=== PATIENT | male | born 1970 | race Caucasian/White ===

== ENCOUNTER 2017-09-04 15:13 | Emergency (ER) | payer OTHER ==
[2017-09-04 15:17] VITALS: BP 133/79; BMI 30.5
[2017-09-04] MEDS ORDERED: TETRACAINE HCL ONE (15:21)
[2017-09-04] MEDS ORDERED: FUL-GLO STRIP ONE (15:21)
[2017-09-04] MEDS ORDERED: TETRACAINE HCL AFFEYE ONE (15:32)
[2017-09-04] MEDS ORDERED: FUL-GLO STRIP LEFTEYE ONE (15:32)
--- NOTE | 2017-09-04 15:42 | DR.GENAD ---
HPI - PCP Primary Care Physician: ROXI - HPI Comment HPI Comment: He presents with lt. eye irritation and pain onset about 1 hr. [employer] in [place]. He states that he may have saw dust in there. - Complaint/Symptoms Chief Complaint:: PT C/O LT EYE PAIN. PT STATES HE GOT SOMETHING IN HIS EYE APPROX 1 HOUR AGO. PT STATES HE THINKS IT MAYBE SOME SAW DUST. - Nurses notes reviewed Nurses Notes Review: Yes - Source History Provided: Patient - Mode of Arrival Mode of Arrival: Ambulatory - Timing Onset of Chief Complaint: 09/04/17 - Modifying Factors Worsens:: blinking eyelids Improves:: keeping the eye closed PMH - PMH Past Medical History: No Past Surgical History: No Surgical History: No History - Family History History of Family Medical Conditions: No - Social History Does any household member use tobacco: No Alcohol Use: None Do you use any recreational Drugs:: No Lives With: Family Lives Where: Home - infectious screening In the last 2 months have you had wt loss of >10#?: NO Have you had fever, night sweats or hemotysis?: No Have you traveled outside the country in the last 6 months?: No Isolation: Standard ROS - Review of Systems Constitutional: No Symptoms Reported Eyes: Eye Pain, Tearing ENTM: No Symptoms Reported Respiratoy: No Symptoms Reported Cardiovascular: No Symptoms Reported Gastrointestinal/Abdominal: No Symptoms Reported Genitourinary: No Symptoms Reported Neurological: No Symptoms Reported Musculoskeletal: No Symptoms Reported Integumentary: No Symptoms Reported Hematologic/Lymphatic: No Symptoms Reported Endocrine: No Symptoms Reported Psychiatric: No Symptoms Reported All Other Systems: Reviewed and Negative PE - Vital Signs Vitals: Temperature 97.6 F Pulse Rate 70 Respiratory Rate 20 Blood Pressure 133/79 O2 Sat by Pulse Oximetry 97 - General Limitations: No Limitations General Appearance: Alert, In No Apparent Distress, In Distress (relating to lt. eye discomfort) - Head Head Exam: Normal Inspection - Eyes Eye exam: PERRL, EOMI, Conjunctival Injection - ENT ENT Exam: Normal Exam - Neck Neck Exam: Normal Inspection - Chest Chest Inspection: Normal Inspection - Respiratory Respiratory Exam: Normal Lung Sounds Bilat - Cardiovascular Cardiovascular Exam: Regular Rate, Normal Rhythm - Abdominal Exam Abdominal Exam: Normal Inspection, Normal Bowel Sounds, Soft - Extremities Extremities Exam: Normal Inspection - Back Back Exam: Normal Inspection - Neurologic Neurological Exam: Alert, Oriented X3 - Psychiatric Psychiatric Exam: Normal Affect, Normal Mood Course - Reevaluation 1st: Improved Procedures - Eye Procedure Alcaine Drops Administered: Yes (1cc) Eye FB Removal: removal w/ cotton swab - Diagnosis Discharge Problem: FB (foreign body) of eyelid - Discharge Plan Disposition: HOME, SELF-CARE Condition: Stable - Follow ups/Referrals Follow ups/Referrals: KURT DIANE [Primary Care Provider] - 3 days - Instructions Instructions: How to Use Eye Drops and Eye Ointments
== END 2017-09-04 16:37 | disposition home or self-care (01) ==
LOC: ER 15:19
PROC: 08C Eye, Extirpation (ICD-10-PCS; principal; 2017-09-04)
DX: T15.12XA Foreign body in conjunctival sac, left eye, initial encounter (principal)
CPT/HCPCS: 65205; 99282

== ENCOUNTER 2017-12-21 19:04 | Emergency (ER) | payer OTHER ==
[2017-12-21 19:11] VITALS: BMI 31.8
--- NOTE | 2017-12-21 19:40 | DR.GENAD ---
HPI - PCP Primary Care Physician: edinson - HPI Comment HPI Comment: PAIN NOTED PAST 2 DAYS BUT WORSE TODAY. NO TRAUMA. NO SOB OR CHEST PAIN. NO FEVER. - Complaint/Symptoms Chief Complaint Doctors Comments: PAIN LT LEG MAINLY AROUNG KNEE GOING UP THIGH AND DOWN THE LEG. PAIN INCREASES WITH MOVEMENT. PATIENT ALSO HAVE PAIN AROUNG LLLRT ELBOW GOING UP ARM AND FOREARM. Chief Complaint:: pt c/o lt leg pain and rt am painpt states" my feet are swollen and my lt leg hurts really bad" - Nurses notes reviewed Nurses Notes Review: Yes - Source History Provided: Patient - Mode of Arrival Mode of Arrival: Ambulatory - Timing Onset of Chief Complaint: 12/20/17 Came on: Suddenly - Duration Duration: Constant Duration: Days - Severity Severity: Moderate PMH - PMH Past Medical History: No Past Surgical History: No Surgical History: No History - Family History History of Family Medical Conditions: No - Social History Do you use any recreational Drugs:: No Lives With: Family Lives Where: Home - infectious screening In the last 2 months have you had wt loss of >10#?: NO Have you had fever, night sweats or hemotysis?: No Have you traveled outside the country in the last 6 months?: No Isolation: Standard ROS - Review of Systems Constitutional: No Symptoms Reported Eyes: No Symptoms Reported ENTM: No Symptoms Reported Respiratoy: No Symptoms Reported Cardiovascular: No Symptoms Reported Gastrointestinal/Abdominal: No Symptoms Reported Genitourinary: No Symptoms Reported Neurological: No Symptoms Reported Musculoskeletal: Arm, Elbow, Leg, Knee Integumentary: No Symptoms Reported Hematologic/Lymphatic: No Symptoms Reported Endocrine: No Symptoms Reported All Other Systems: Reviewed and Negative PE - Vital Signs Vitals: Temperature 98.2 F Pulse Rate 66 Respiratory Rate 18 Blood Pressure [Left Arm] 136/72 Blood Pressure 156/75 O2 Sat by Pulse Oximetry 100 - General Limitations: No Limitations General Appearance: Alert - Head Head Exam: Normal Inspection - Eyes Eye exam: Normal Appearance - ENT ENT Exam: Normal External Ear Exam External Ear Exam: Normal External Inspection TM/Canal Exam: Bilateral Normal Nose Exam: Normal Nose Exam Mouth Exam: Normal Inspection Throat Exam: Normal Inspection - Neck Neck Exam: Normal Inspection - Chest Chest Inspection: Symmetric Chest Wall Rise - Respiratory Respiratory Exam: Normal Lung Sounds Bilat Respiratory Exam: Bilateral Clear to Auscultation - Cardiovascular Cardiovascular Exam: Regular Rate, Normal Rhythm - Abdominal Exam Abdominal Exam: Normal Bowel Sounds, Soft MDM - Additional Information Additional Information Obtained From: Family - Differential Diagnosis Differential Diagnosis: TENDINITIS, BURSITIS, MUSCULOSKELETAL PAIN, DVT Course - Treatment Treatment: SEE ORDERS. IM NORFLEX AND TORADOL IN ED. - Reevaluation 1st: Improved (PAIN IMPROVING.) - Education/Counseling Education/Counseling: Patient, Family, Education Educated On: Diagnosis, Needs for Follow Up ROR - Labs Reviewed Laboratory Results Reviewed?: Yes Result Diagrams: 12/21/17 20:05 12/21/17 20:05 Laboratory: WBC 6.8 X10^3/uL (3.6-10.0) 12/21/17 20:05 RBC 4.56 X10^6/uL (4.7-6.0) L 12/21/17 20:05 Hgb 13.7 g/dL (13.5-18.0) 12/21/17 20:05 Hct 39.3 % (42.0-54.0) L 12/21/17 20:05 MCV 86.3 fL (80.0-100.0) 12/21/17 20:05 MCH 30.0 pg (27.0-34.0) 12/21/17 20:05 MCHC 34.8 g/dL (33.0-35.0) 12/21/17 20:05 RDW 13.4 % (11.6-16.5) 12/21/17 20:05 Plt Count 326 X10^3/uL (150.0-450.0) 12/21/17 20:05 MPV 8.3 fL (7.4-11.0) 12/21/17 20:05 Neut % 52.7 % (42.0-75.0) 12/21/17 20:05 Lymph % 32.6 % (21.0-51.0) 12/21/17 20:05 [place] % 10.1 % (0.0-13.0) 12/21/17 20:05 Eos % 2.6 % (0.9-2.9) 12/21/17 20:05 Baso % 2.0 % (0.2-1.0) H 12/21/17 20:05 Neut # 3.6 x10^3/uL (2.2-4.8) 12/21/17 20:05 Lymph # 2.2 X10^3/uL (1.3-2.9) 12/21/17 20:05 [place] # 0.7 x10^3/uL (0.3-0.8) 12/21/17 20:05 Eos # 0.2 x10^3/uL (0.0-0.2) 12/21/17 20:05 Baso # 0.1 X10^3/uL (0.0-0.1) 12/21/17 20:05 Absolute Nucleated RBC 0.0 /100WBC 12/21/17 20:05 D-Dimer < 100 ng/mL (0-400) 12/21/17 20:05 Sodium 141 mmol/L (136-145) 12/21/17 20:05 Corrected Sodium TNP 12/21/17 20:05 Potassium 4.2 mmol/L (3.5-5.1) 12/21/17 20:05 Chloride 104 mmol/L (98-107) 12/21/17 20:05 Carbon Dioxide 28.9 mmol/L (21-32) 12/21/17 20:05 BUN 21 mg/dL (7-18) H 12/21/17 20:05 Creatinine 1.22 mg/dL (0.70-1.30) 12/21/17 20:05 Est GFR (MDRD) Af Amer > 60 (>60) 12/21/17 20:05 Est GFR (MDRD) Non-Af > 60 (>60) 12/21/17 20:05 Glucose 94 mg/dL (65-99) 12/21/17 20:05 Calcium 8.3 mg/dL (8.5-10.1) L 12/21/17 20:05 Corrected Calcium TNP 12/21/17 20:05 Total Bilirubin 0.20 mg/dL (0.2-1.0) 12/21/17 20:05 AST 23 Units/L (15-37) 12/21/17 20:05 ALT 33 Units/L (12-78) 12/21/17 20:05 Alkaline Phosphatase 88 Units/L (46-116) 12/21/17 20:05 Total Protein 7.2 g/dL (6.4-8.2) 12/21/17 20:05 Albumin 3.5 g/dL (3.4-5.0) 12/21/17 20:05 Globulin 3.7 g/dL (2.5-4.5) 12/21/17 20:05 Albumin/Globulin Ratio 0.9 Ratio (1.1-2.1) L 12/21/17 20:05 - XRAY XRAY Interpreted by: Radiologist - Diagnosis Discharge Problem: Tendinitis, Arthritis, Musculoskeletal pain - Discharge Plan Disposition: HOME, SELF-CARE Condition: Stable Prescriptions: Ibuprofen [MOTRIN TAB 800 MG *] 800 mg PO DAILY PRN #20 tab PRN Reason: Pain/Inflammation - Follow ups/Referrals Follow ups/Referrals: KURT DIANE [Primary Care Provider] - 12/22/17 - Instructions Instructions: Tendinitis and Tenosynovitis-SportsMed, Musculoskeletal Pain Additional Instructions: RETURN TO ED IF WORSE.
[2017-12-21 20:27] LABS: BASOPHILS # (AUTO) 0.1 X10^3/uL (0.0-0.1); EOSINOPHILS # (AUTO) 0.2 x10^3/uL (0.0-0.2); EOSINOPHILS % (AUTO) 2.6 % (0.9-2.9); HEMATOCRIT 39.3 % (42.0-54.0); HEMOGLOBIN 13.7 g/dL (13.5-18.0); LYMPHOCYTES # (AUTO) 2.2 X10^3/uL (1.3-2.9); LYMPHOCYTES % (AUTO) 32.6 % (21.0-51.0); MEAN CORPUSCULAR HGB CONC 34.8 g/dL (33.0-35.0); MEAN CORPUSCULAR VOLUME 86.3 fL (80.0-100.0); MEAN PLATELET VOLUME 8.3 fL (7.4-11.0); MONOCYTES # (AUTO) 0.7 x10^3/uL (0.3-0.8); MONOCYTES % (AUTO) 10.1 % (0.0-13.0); NEUTROPHILS # (AUTO) 3.6 x10^3/uL (2.2-4.8); NEUTROPHILS % (AUTO) 52.7 % (42.0-75.0); PLATELET COUNT 326 X10^3/uL (150.0-450.0); RED BLOOD COUNT 4.56 X10^6/uL (4.7-6.0); RED CELL DISTRIBUTION WIDTH 13.4 % (11.6-16.5); WHITE BLOOD COUNT 6.8 X10^3/uL (3.6-10.0)
[2017-12-21 20:31] LABS: ALANINE AMINOTRANSFERASE 33 Units/L (12-78); ALBUMIN 3.5 g/dL (3.4-5.0); ALKALINE PHOSPHATASE 88 Units/L (46-116); BLOOD UREA NITROGEN 21 mg/dL (7-18); CALCIUM 8.3 mg/dL (8.5-10.1); CARBON DIOXIDE 28.9 mmol/L (21-32); CHLORIDE 104 mmol/L (98-107); CREATININE 1.22 mg/dL (0.70-1.30); SODIUM 141 mmol/L (136-145); TOTAL PROTEIN 7.2 g/dL (6.4-8.2); eGFR BLACK RACES > 60 (>60); eGFR NON BLACK RACES > 60 (>60)
[2017-12-21 20:35] LABS: ASPARTATE AMINO TRANSFERASE 23 Units/L (15-37)
[2017-12-21] MEDS ORDERED: TORADOL 60 MG VIAL IM ONE (20:58)
[2017-12-21] MEDS ORDERED: NORFLEX INJ IM ONE (20:58)
[2017-12-21] MEDS ORDERED: NORFLEX INJ ONE (21:07)
[2017-12-21] MEDS ORDERED: TORADOL 60 MG VIAL ONE (21:07)
[2017-12-21 21:43] VITALS: BP 136/72
== END 2017-12-21 21:42 | disposition home or self-care (01) ==
LOC: ER 19:13
DX: M77.9 Enthesopathy, unspecified (principal); M19.90 Unspecified osteoarthritis, unspecified site; M79.1 Myalgia
CPT/HCPCS: 36415; 80053; 85025; 85378; 96372; 99283; 99284; J1885; J2360

== ENCOUNTER 2017-12-24 20:44 | Emergency (ER) | payer OTHER ==
[2017-12-24 20:49] VITALS: BMI 31.8
--- NOTE | 2017-12-24 21:13 | DR.EXTPAIN ---
HPI - Time seen Time seen: 21:09 - PCP Primary Care Physician: edinson - Complaint/Symptoms Chief Complaint Doctor Comments: Patient states that whenever he sits in his truck his left knee,left hip starts hurting. He denies trauma. He admits to pain behind the left knee. Chief Complaint:: "left knee pain, and behind left knee painful and swollen.". seen by on [id number], has appt with pcp on friday. - Source History Provided: Patient - Mode of arrival Mode of Arrival: Ambulatory - Timing Onset of Chief Complaint: 12/21/17 PMH - PMH Past Medical History: No Past Surgical History: No Surgical History: No History - Family History History of Family Medical Conditions: No - Social History Does patient currently use any type of tobacco product: No Have you used tobacco products in the last 12 months: No Type of Tobacco Use: Smokeless Alcohol Use: None Do you use any recreational Drugs:: No Lives With: Family Lives Where: Home - infectious screening Have you traveled outside the country in the last 6 months?: No Isolation: Standard ROS - Review of Systems Eyes: No Symptoms Reported ENTM: No Symptoms Reported Respiratoy: No Symptoms Reported Cardiovascular: No Symptoms Reported Gastrointestinal/Abdominal: No Symptoms Reported Genitourinary: No Symptoms Reported Neurological: No Symptoms Reported Musculoskeletal: Left (hip pain), Knee (left knee pain) Integumentary: No Symptoms Reported Hematologic/Lymphatic: No Symptoms Reported Endocrine: No Symptoms Reported Psychiatric: No Symptoms Reported All Other Systems: Reviewed and Negative PE - Vital Signs Vitals: Temperature 97.7 F Pulse Rate 61 Respiratory Rate 18 Blood Pressure [Left Arm] 136/72 Blood Pressure 133/79 O2 Sat by Pulse Oximetry 98 - General Limitations: No Limitations General Appearance: Alert - Head Head Exam: Normal Inspection, Atraumatic - Eyes Eye exam: Normal Appearance, PERRL, EOMI - ENT ENT Exam: Normal Exam - Neck Neck Exam: Normal Inspection, Full ROM - Chest Chest Inspection: Normal Inspection - Respiratory Respiratory Exam: Normal Lung Sounds Bilat Respiratory Exam: Bilateral Clear to Auscultation - Cardiovascular Cardiovascular Exam: Regular Rate, Normal Rhythm - Abdominal Exam Abdominal Exam: Normal Inspection Abdominal Tenderness: negative: RUQ, RLQ, LUQ, LLQ, Epigastrium, Suprapubic, Diffuse, Mild, Moderate, Severe, Other - Extremities Extremities Exam: Normal Inspection, Tenderness (left popliteal area) - Upper Extremities Shoulder Exam: Normal Inspection Arm Exam: Normal Inspection Elbow Exam: Normal Inspection Forearm Exam: Normal Inspection Hand Exam: Normal Inspection Neuromotor Exam: Normal Exam Neurosensory Exam: Normal Exam Hand Tendon Exam: Flexor Digitorium Profundus (Location) Upper Ext. Vascular Exam: Capillary Refill - Lower Extremities Hip/Pelvis Exam: Other (left hip pain) Upper Leg Exam: Normal Inspection Knee Exam: Normal Inspection, Tenderness (left popliteal tenderness) Lower Leg Exam: Normal Inspection Ankle Exam: Normal Inspection. negative: Ecchymosis Foot/Toe Exam: Normal Inspection, Full ROM Neurovascular/Tendon Exam: Normal Capillary Refill Gait Exam: Observed and Normal - Back Back Exam: Normal Inspection - Neurological Neurological Exam: Alert, Oriented X3, CN II-XII Intact - Psychiatric Psychiatric Exam: Normal Affect - Skin Skin Exam: Warm, Dry Course - Education/Counseling Educated On: Treatment, Diagnosis, Prognosis, Needs for Follow Up ROR - Labs Reviewed Laboratory Results Reviewed?: Yes (D Dimer negative) Result Diagrams: 12/24/17 21:30 Laboratory: WBC 6.7 X10^3/uL (3.6-10.0) 12/24/17 21:30 RBC 4.66 X10^6/uL (4.7-6.0) L 12/24/17 21:30 Hgb 14.1 g/dL (13.5-18.0) 12/24/17 21:30 Hct 40.4 % (42.0-54.0) L 12/24/17 21:30 MCV 86.7 fL (80.0-100.0) 12/24/17 21:30 MCH 30.3 pg (27.0-34.0) 12/24/17 21:30 MCHC 34.9 g/dL (33.0-35.0) 12/24/17 21:30 RDW 13.1 % (11.6-16.5) 12/24/17 21:30 Plt Count 352 X10^3/uL (150.0-450.0) 12/24/17 21:30 MPV 8.6 fL (7.4-11.0) 12/24/17 21:30 Neut % 48.4 % (42.0-75.0) 03/07/18 21:30 Lymph % 35.6 % (21.0-51.0) 12/24/17 21:30 [place] % 11.5 % (0.0-13.0) 12/24/17 21:30 Eos % 3.3 % (0.9-2.9) H 12/24/17 21:30 Baso % 1.2 % (0.2-1.0) H 12/24/17 21:30 Neut # 3.2 x10^3/uL (2.2-4.8) 12/24/17 21:30 Lymph # 2.4 X10^3/uL (1.3-2.9) 12/24/17 21:30 [place] # 0.8 x10^3/uL (0.3-0.8) 12/24/17 21:30 Eos # 0.2 x10^3/uL (0.0-0.2) 12/24/17 21:30 Baso # 0.1 X10^3/uL (0.0-0.1) 12/24/17 21:30 Absolute Nucleated RBC 0.0 /100WBC 12/24/17 21:30 D-Dimer < 100 ng/mL (0-400) 12/24/17 21:30 C-Reactive Protein 15.80 mg/L (0-3.0) H 12/24/17 21:30 - XRAY XRAY Interpreted by: Radiologist (Left knee: No acute left knee fracture. Left hip: There is no cortical lucency or malalignment. 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 Mild bilateral hip joint degenerative changes noted. worse on the right. 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
--- NOTE | 2017-12-24 22:17 | RAD ---
Left knee two views Indication: Left knee pain. Findings: There is no effusion, cortical lucency or malalignment. Impression: No acute left knee fracture Reported By:
[2017-12-24 22:18] LABS: BASOPHILS # (AUTO) 0.1 X10^3/uL (0.0-0.1); BASOPHILS % (AUTO) 1.2 % (0.2-1.0); EOSINOPHILS # (AUTO) 0.2 x10^3/uL (0.0-0.2); EOSINOPHILS % (AUTO) 3.3 % (0.9-2.9); HEMATOCRIT 40.4 % (42.0-54.0); HEMOGLOBIN 14.1 g/dL (13.5-18.0); LYMPHOCYTES # (AUTO) 2.4 X10^3/uL (1.3-2.9); LYMPHOCYTES % (AUTO) 35.6 % (21.0-51.0); MEAN CORPUSCULAR HEMOGLOBIN 30.3 pg (27.0-34.0); MEAN CORPUSCULAR HGB CONC 34.9 g/dL (33.0-35.0); MEAN CORPUSCULAR VOLUME 86.7 fL (80.0-100.0); MEAN PLATELET VOLUME 8.6 fL (7.4-11.0); MONOCYTES # (AUTO) 0.8 x10^3/uL (0.3-0.8); MONOCYTES % (AUTO) 11.5 % (0.0-13.0); NEUTROPHILS # (AUTO) 3.2 x10^3/uL (2.2-4.8); NEUTROPHILS % (AUTO) 48.4 % (42.0-75.0); PLATELET COUNT 352 X10^3/uL (150.0-450.0); RED BLOOD COUNT 4.66 X10^6/uL (4.7-6.0); RED CELL DISTRIBUTION WIDTH 13.1 % (11.6-16.5); WHITE BLOOD COUNT 6.7 X10^3/uL (3.6-10.0)
--- NOTE | 2017-12-24 22:18 | RAD ---
Left hip-two views Indication: Left knee pain. Findings: There is no cortical lucency or malalignment. 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 Mild bilateral hip joint degenerative changes noted, worse on the right. Impression: No acute left hip fracture. Reported By:
[2017-12-24] MEDS ORDERED: TORADOL TAB PO PRN (22:52)
[2017-12-24 23:02] VITALS: BP 139/74
== END 2017-12-24 23:03 | disposition home or self-care (01) ==
LOC: ER 20:52
DX: M24.9 Joint derangement, unspecified (principal); M16.0 Bilateral primary osteoarthritis of hip
CPT/HCPCS: 36415; 73501; 73560; 85025; 85378; 86140; 99282; 99283